=== PATIENT | male | born 1990 | race Caucasian/White ===

== ENCOUNTER 2020-09-01 16:17 | Emergency (ER) | payer OTHER ==
[~2020-09-01] VITALS: Ht 170.2 cm; Wt 72.6 kg
[2020-09-01 17:11] VITALS: BP_SYST 147
[2020-09-01 18:10] LABS: RED BLOOD CELL COUNT(AUTO) 5.04 MIL/uL (4.2-6.2); WHITE BLOOD COUNT (AUTO) 8.9 K/uL (4.8-10.8)
[2020-09-01 18:11] LABS: HEMATOCRIT 47.4 % (36-54); HEMOGLOBIN 16.3 g/dL (14.0-18.0)
[2020-09-01 18:12] LABS: LYMPHOCYTES % (AUTO) 33.5 % (20.5-51.5); MEAN CORPUSCULAR HEMOGLOBIN 33 pg (27-31); MEAN CORPUSCULAR HGB CONC 35 % (32-36); MEAN CORPUSCULAR VOLUME 94 fL (79.0-98.0); MONOCYTES % (AUTO) 6.9 % (1.7-9.3); NEUTROPHILS % (AUTO) 57.9 % (40.0-70.0); PLATELET COUNT (AUTO) 277 K/uL (130-430); RED CELL DISTRIBUTION WIDTH 12.7 % (9.0-15.0)
[2020-09-01 18:13] LABS: BASOPHILS % (AUTO) 0.4 % (0.0-2.0); EOSINOPHILS # (AUTO) 0.1 K/uL (0.0-0.4); EOSINOPHILS % (AUTO) 1.3 % (0.0-4.0); MONOCYTES # (AUTO) 0.6 K/uL (0.0-1.0); NEUTROPHILS # (AUTO) 5.1 K/uL (1.8-7.7)
[2020-09-01 18:35] LABS: ACETONE, SERUM NEGATIVE (NEGATIVE)
[2020-09-01 18:39] LABS: ANION GAP 9 (5-15); CALCIUM 8.9 mg/dL (8.4-11.0); CHLORIDE 104 mmol/L (98-107); CREATININE 1.06 mg/dL (0.55-1.30); GLUCOSE 105 mg/dL (70-99); POTASSIUM 4.1 mmol/L (3.5-5.1); SODIUM SERUM 142 mmol/L (136-145); UREA NITROGEN, BLOOD 10 mg/dL (8-21)
[2020-09-01 18:44] LABS: BILIRUBIN,URINE NEGATIVE (NEGATIVE); BLOOD, URINE NEGATIVE (NEGATIVE); COLOR,URINE YELLOW (YELLOW); GLUCOSE,URINE NEGATIVE (NEGATIVE); KETONES,URINE NEGATIVE (NEGATIVE); LEUKOCYTE ESTERASE ,URINE NEGATIVE (NEGATIVE); NITRITE, URINE NEGATIVE (NEGATIVE); PROTEIN URINE NEGATIVE (NEGATIVE)
[2020-09-01 18:45] LABS: ALANINE AMINOTRANSFERASE 48 U/L (12-78); ALBUMIN 4.2 g/dL (3.4-4.8); ASPARTATE AMINOTRANSFERASE 23 U/L (10-37); TOTAL BILIRUBIN 0.3 mg/dL (0.0-1.0)
[2020-09-01 18:46] LABS: CLARITY/URINE SLIGHTLY HAZY (CLEAR)
[2020-09-01] MEDS ORDERED: CLIN150C16 PO (19:18)
[2020-09-01] MEDS ORDERED: CORTEARS EACH EAR (19:18)
[2020-09-01 19:23] VITALS: BP_SYST 147
== END 2020-09-01 19:23 | disposition home or self-care (01) ==
LOC: SED 16:17
DX: H60.61 Unspecified chronic otitis externa, right ear (principal); J02.9 Acute pharyngitis, unspecified
CPT/HCPCS: 36415; 80053; 81003; 82009-TC; 83036; 83605; 85025; 99283